=== PATIENT | female | born 1985 | race Caucasian/White ===

== ENCOUNTER 2024-12-01 20:27 | Emergency (ER) | payer MEDICAID ==
[~2024-12-01] VITALS: Ht 154.9 cm; Wt 104.0 kg
[2024-12-01 20:58] VITALS: O2SAT 100
[2024-12-01] MEDS: LIDOCAINE 5% PATCH TOP SCH (22:52)
[2024-12-01] MEDS: KETOROLAC 15MG/ML VIAL IM ONE (22:52)
[2024-12-02] MEDS ORDERED: LIDO-53 TP (00:14)
[2024-12-02] MEDS ORDERED: NAPR-1176 MT (00:14)
[2024-12-02 00:30] VITALS: BP 124/56; PULSE 65; RESP 16; TEMP 36.7; O2SAT 98
== END 2024-12-02 00:37 | disposition home or self-care (01) ==
LOC: ER 20:27
DX: M25.532 Pain in left wrist (principal); M25.552 Pain in left hip; Z79.1 Long term (current) use of non-steroidal anti-inflammatories (NSAID); Z79.899 Other long term (current) drug therapy; V43.52XA Car driver injured in collision with other type car in traffic accident, initial encounter; Y93.89 Activity, other specified; Y92.89 Other specified places as the place of occurrence of the external cause; Y99.8 Other external cause status
CPT/HCPCS: 81025; 73110; 96372; 99283; J1885; Z7610